=== PATIENT | male | born 1980 | race Hispanic/Latino ===

== ENCOUNTER 2016-12-07 10:31 | Emergency (ER) | payer OTHER ==
[~2016-12-07] VITALS: Ht 177.8 cm; Wt 97.5 kg
[~2016-12-07 10:31] MED LIST: ACULAR 0.5%5 ML OS; BACTRIM DS 8001 TAB PO; CUTIVATE30 GM TOP; HYDROXYZINE HCL25 M2 PO; KEFLEX500 MG PO; NO MEDS; PERCOCET 325 MG1 TA2 PO; PERCOCET 5-3251 EACH PO; POLYTRIM O200 GTT/BO OPH; PREDNISONE20 M1 PO; VIBRAMYCIN100 MG PO
[2016-12-07 10:35] VITALS: BP 142/98
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
[2016-12-07] MEDS ORDERED: NAPROSYN500 M1 PO (11:17)
[2016-12-07] MEDS ORDERED: NORCO 5-325 TA1 EACH PO (11:17)
[2016-12-07] MEDS ORDERED: POLYTRIM EYE DR10 ML OPH (11:17)
== END 2016-12-07 11:23 ==
LOC: ERH 10:31
DX: T26.40XA Burn of unspecified eye and adnexa, part unspecified, initial encounter (principal); T26.41XA Burn of right eye and adnexa, part unspecified, initial encounter; X08.8XXA Exposure to other specified smoke, fire and flames, initial encounter
CPT/HCPCS: 96372; J1885